=== PATIENT | female | born 1990 | race African-American/Black ===

== ENCOUNTER 2019-03-26 22:23 | Emergency (ER) | payer SELFPAY ==
[~2019-03-26] VITALS: Ht 180.3 cm; Wt 61.2 kg
[2019-03-26 23:37] LABS: INFLUENZA A PATIENT NEGATIVE (NEGATIVE); INFLUENZA B PATIENT NEGATIVE (NEGATIVE)
[2019-03-27 02:00] VITALS: BP 168/116
[2019-03-27] MEDS ORDERED: AZIT500T4 PO (02:34)
--- NOTE | 2019-03-27 02:34 | PHYS DOC ---
Past Medical History Past Medical History: No Pertinent History Past Surgical History: No Surgical History Alcohol Use: Occasionally Drug Use: None Adult General Chief Complaint Chief Complaint: COUGH HPI HPI 28-year-old female presents to the emergency Department complaints of cough times one week, yellow sputum production, fever, headache. She denies any nausea, vomiting, sinus congestion. She has lost her voice. She's tried plqj-hwd-wgtytiy medications without significant relief. Nothing makes her symptoms worse, nothing makes her symptoms better. Review of Systems Review of Systems Constitutional: fever HENT: sore throat Respiratory: Denies cough or shortness of breath [] Cardiovascular: No additional information not addressed in HPI [] GI: Denies abdominal pain, nausea, vomiting, bloody stools or diarrhea [] : Denies dysuria or hematuria [] Neurologic: + headache, no focal weakness or sensory changes [] All other systems were reviewed and found to be within normal limits, except as documented in this note. Allergies Allergies Allergies Coded Allergies Type Severity Reaction Last Updated Verified No Known Drug Allergies 03/26/19 No Physical Exam Physical Exam Constitutional: Well developed, well nourished, no acute distress, non-toxic appearance. [] HENT: Normocephalic, atraumatic, bilateral external ears normal, oropharynx moist, no oral exudates, nose normal. [] Eyes: PERRLA, EOMI, conjunctiva normal, no discharge. [] Neck: Normal range of motion, no tenderness, supple, no stridor. [] Cardiovascular:Heart rate regular rhythm, no murmur [] Lungs & Thorax: Bilateral breath sounds clear to auscultation [] Abdomen: Bowel sounds normal, soft, no tenderness, no masses, no pulsatile masses. [] Skin: Warm, dry, no erythema, no rash. [] Extremities: No tenderness, no edema. [] Neurologic: Alert and oriented X 3, no focal deficits noted. [] Psychologic: Affect normal, judgement normal, mood normal. [] Current Patient Data Vital Signs Vital Signs Date Time Temp Pulse Resp B/P (MAP) Pulse Ox O2 Delivery O2 Flow Rate FiO2 03/27/19 02:00 91 16 168/116 (133) 100 Room Air 03/26/19 23:08 98.1 98.1 Lab Values Laboratory Tests Test 03/26/19 23:08 Influenza Type A Antigen Negative (NEGATIVE) Influenza Type B Antigen Negative (NEGATIVE) EKG EKG [] Radiology/Procedures Radiology/Procedures [] Course & Med Decision Making Course & Med Decision Making Pertinent Labs and Imaging studies reviewed. (See chart for details) []28-year-old female presents to the emergency Department complaints of cough times one week, yellow sputum production, fever, headache. She denies any nausea, vomiting, sinus congestion. She has lost her voice. She's tried kkyq-acb-awvcqwm medications without significant relief. Nothing makes her symptoms worse, nothing makes her symptoms better. Influenza negative Discussed findings with patient Azithromycin 500mg daily x 5 days Symptomatic treatment with OTC medications as needed Return precautions provided Dragon Disclaimer Dragon Disclaimer This electronic medical record was generated, in whole or in part, using a voice recognition dictation system. Departure Departure Impression: Primary Impression: URI (upper respiratory infection) Disposition: HOME, SELF-CARE Condition: STABLE Referrals: NO PCP (PCP) Patient Instructions: Upper Respiratory Infection, Adult, Uyet-go-Bjeu Additional Instructions: Recommend follow up with PCP 3 - 5 days Return to the ER with worsening symptoms, intractable pain, fever, altered mental status Tylenol/Motrin as needed for pain Take antibiotics as directed Influenza negative Scripts Azithromycin (AZITHROMYCIN TABLET) 500 Mg Tablet 1 TAB PO DAILY for 5 Days, #5 TAB 0 Refills Prov: PAT PARDO MD 03/27/19 Problem Qualifiers Primary Impression: URI (upper respiratory infection) URI type: unspecified URI Qualified Codes: J06.9 - Acute upper respiratory infection, unspecified PAT PARDO MD Mar 27, 2019 02:34
== END 2019-03-27 02:37 | disposition home or self-care (01) ==
LOC: ER 22:23
DX: J06.9 Acute upper respiratory infection, unspecified (principal); R49.0 Dysphonia; R50.9 Fever, unspecified; R51 Headache
CPT/HCPCS: 87804; 99284

== ENCOUNTER 2021-07-14 18:18 | Emergency (ER) | payer SELFPAY ==
[~2021-07-14] VITALS: Ht 177.8 cm; Wt 75.3 kg
[~2021-07-14 18:18] MED LIST: AZIT500T4 PO
[2021-07-14 18:30] VITALS: BP 156/109
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
== END 2021-07-14 19:40 ==
LOC: ER 18:18 → EEVIPCON 18:18 → ER 19:40
DX: F10.129 Alcohol abuse with intoxication, unspecified; R03.0 Elevated blood-pressure reading, without diagnosis of hypertension; Y90.9 Presence of alcohol in blood, level not specified
CPT/HCPCS: 99283

== ENCOUNTER 2021-08-05 11:08 | Emergency (ER) | payer MEDICAID ==
[~2021-08-05] VITALS: Ht 177.8 cm; Wt 80.0 kg
[2021-08-05] MEDS ORDERED: AMOX1TAB61 PO (12:05)
--- NOTE | 2021-08-05 12:05 | PHYS DOC ---
Past Medical History Past Medical History: No Pertinent History Past Surgical History: No Surgical History Smoking Status: Never Smoker Alcohol Use: Occasionally Drug Use: None General Adult EDM: Chief Complaint: Congestion HPI: HPI: Patient is a 31-year-old female who presents today with facial pain and nasal congestion. Patient states that over the last month she has had increased nasal congestion and now she is experiencing pain underneath her eyes and her sinuses. Patient states she has a past medical history of sinusitis, and she states she is taking currently no medications fybf-zmf-lvsnldc to help with the congestion. Patient denies chest pain, shortness of breath, fever or chills. Patient states she had a approximately 6 months ago and is not breast-feeding. Review of Systems: Review of Systems: Constitutional: Denies fever or chills. [] Eyes: Denies change in visual acuity. [] HENT: Sinus pain and pressure, nasal congestion Respiratory: Denies cough or shortness of breath. [] Cardiovascular: Denies chest pain or edema. [] GI: Denies abdominal pain, nausea, vomiting, bloody stools or diarrhea. [] : Denies dysuria. [] Musculoskeletal: Denies back pain or joint pain. [] Integument: Denies rash. [] Neurologic: Denies headache, focal weakness or sensory changes. [] Endocrine: Denies polyuria or polydipsia. [] Lymphatic: Denies swollen glands. [] Psychiatric: Denies depression or anxiety. [] Heart Score: C/O Chest Pain: No Risk Factors: Risk Factors: DM, Current or recent (<one month) smoker, HTN, HLP, family history of CAD, obesity. Risk Scores: Score 0 - 3: 2.5% MACE over next 6 weeks - Discharge Home Score 4 - 6: 20.3% MACE over next 6 weeks - Admit for Clinical Observation Score 7 - 10: 72.7% MACE over next 6 weeks - Early Invasive Strategies Allergies: Allergies: Allergies Coded Allergies Type Severity Reaction Last Updated Verified No Known Drug Allergies 03/26/19 No Physical Exam: PE: Constitutional: Well developed, well nourished, no acute distress, non-toxic appearance. [] HENT: Normocephalic, atraumatic, tympanic membranes bilaterally are within normal limits, oropharynx is moist and reddened, tonsils are present no exudate noted, maxillary sinuses when palpated are tender to touch with swelling noted, nares are reddened and inflamed Eyes: PERRLA, EOMI, conjunctiva normal, no discharge. [] Neck: Normal range of motion, no tenderness, supple, no stridor. [] Cardiovascular:Heart rate regular rhythm, no murmur [] Lungs & Thorax: Bilateral breath sounds clear to auscultation [] Abdomen: Bowel sounds normal, soft, no tenderness, no masses, no pulsatile masses. [] Skin: Warm, dry, no erythema, no rash. [] Back: No tenderness, no CVA tenderness. [] Extremities: No tenderness, no cyanosis, no clubbing, ROM intact, no edema. [] Neurologic: Alert and oriented X 3, normal motor function, normal sensory function, no focal deficits noted. [] Psychologic: Affect normal, judgement normal, mood normal. [] Current Patient Data: Vital Signs: Vital Signs Date Time Temp Pulse Resp B/P (MAP) Pulse Ox O2 Delivery O2 Flow Rate FiO2 08/05/21 11:23 97.3 84 20 156/97 (116) 98 Room Air 97.3 EKG: EKG: [] Radiology/Procedures: Radiology/Procedures: [] Course & Med Decision Making: Course & Med Decision Making Pertinent Labs and Imaging studies reviewed. (See chart for details) With patient's increased pain with palpation of maxillary sinuses and patient also reports having colored nasal congestion, I will treat her for sinusitis, I did inform her that she will probably need to follow-up with her primary care physician for possible ENT consult for further evaluation and management of her sinus issues. Patient states she does not have a primary care physician and will be provided with a resource list that she can follow-up with. Patient is also advised to take Claritin and Flonase fkat-iys-itimfut to help with sinus drainage as well as a nasal decongestant to help with clearing the congestion that she has. Patient verbalized understanding of this and agreeable with the plan of care. [employer] Disclaimer: Christopher Disclaimer: This electronic medical record was generated, in whole or in part, using a voice recognition dictation system. Departure Departure Impression: Primary Impression: Sinusitis, acute maxillary Qualified Codes: J01.01 - Acute recurrent maxillary sinusitis Disposition: HOME / SELF CARE / HOMELESS Condition: STABLE Referrals: NO PCP (PCP) Patient Instructions: Sinusitis Additional Instructions: Augmentin 875 mg take 1 tablet twice daily for 10 full days Tylenol and/or ibuprofen as needed for pain Claritin or Zyrtec take 1 tablet daily Vtpi-cqt-hjxwecb Benadryl 1 tablet at night to help with rest Flonase nasal spray 2 sprays each nare twice daily to help with nasal congestion and to help clear the sinuses Dqqn-onp-uaorstg nasal decongestant to help with increased drainage Follow-up with your primary care physician or one of the listed clinics below for further evaluation and management of your nasal and sinus concerns Return here to the emergency department should you have any swelling of your lips or face, difficulty swallowing, or increased shortness of breath. [facility] [address] [place] [address] [facility] [address] [place] [address] [facility] [address] [facility] [place] [address] [facility] [address] [place] [address] [facility] [address] [place] [address] [facility] [address] [place] [address] [facility] [address] [place] [address] [facility] [address] [place] [address] [facility] [address] [place] [address] [facility] [address] [place] [address] Scripts Amoxicillin/Potassium Clav (AUGMENTIN 875-125 TABLET) 1 Each Tablet 1 TAB PO BID for 10 Days, #20 TAB 0 Refills Prov: MARY FRITZ RECEPTION 08/05/21 MARY FRITZ RECEPTION August 05, 2021 12:05
[2021-08-05 12:11] VITALS: BP 157/109
== END 2021-08-05 12:11 | disposition home or self-care (01) ==
LOC: ER 11:08
DX: J01.01 Acute recurrent maxillary sinusitis (principal)
CPT/HCPCS: 99283